=== PATIENT | male | born 1990 | race Caucasian/White ===

== ENCOUNTER 2023-08-04 20:19 | Emergency (ER) | payer OTHER ==
[2023-08-04 20:28] VITALS: BP 145/79; PULSE 100; RESP 20; TEMP 98.2; BMI 40.6
== END 2023-08-04 23:30 | disposition home or self-care (01) ==
LOC: JERFT 20:19
DX: S99.911A Unspecified injury of right ankle, initial encounter (principal); W19.XXXA Unspecified fall, initial encounter
CPT/HCPCS: 99281-25